=== PATIENT | male | born 1985 | race Caucasian/White ===

== ENCOUNTER 2017-01-01 15:49 | Emergency (ER) | payer OTHER ==
[~2017-01-01] VITALS: Ht 172.7 cm; Wt 172.0 kg
[2017-01-01 15:54] VITALS: BP 110/71; PULSE 108; RESP 16; O2SAT 98
[2017-01-01 17:30] LABS: BASOPHILS % (AUTO) 0.4 % (0-3); EOSINOPHILS % (AUTO) 0 % (0-5); MONOCYTES % (AUTO) 11.4 % (4-12); Mean Corpuscular Hemoglobin 29.9 pg (27.0-35.0); Mean Corpuscular Volume 83.4 fL (81-100); Platelet Count 202 bil/L (150-400)
[2017-01-01] MEDS ORDERED: Ondansetron 8 mg ODT Tablet PO ONE (17:55)
[2017-01-01] MEDS ORDERED: Ondansetron 2 mg/mL 2 mL Inj IVPUSH PRN (17:55)
[2017-01-01 17:56] VITALS: BP 133/84; PULSE 91; O2SAT 97
[2017-01-01 17:59] LABS: Magnesium 1.8 mg/dL (1.6-2.6)
--- NOTE | 2017-01-01 18:04 | ED.REPORT ---
HPI-Abd Pain M Under 40 Date of Service Jan 01, 2017 ED Provider: Milan Woody MD Pt is an otherwise healthy 32 year old male who presents to the ED complaining of concerns of dehydration onset 10:00 yesterday. He c/o associated vomiting, nausea, abdominal pain, lightheadedness, dizziness, fever (Tmax - 101.7 F) and diarrhea. The pt reports that his abdominal pain may be due to hunger. He denies hematochezia and dysuria. The pt denies recent antibiotic use, drinking, and overseas travel. His las episode of diarrhea was 30 minutes prior. Nursing Notes Stated Complaint: NAUSEATED/VOMITING FOR 2 DAYS Chief Complaint: Male Abdominal Pain Nursing Notes Reviewed: Yes Allergies: Coded Allergies: No Known Allergies (Unverified , 01/01/17) Scheduled Ondansetron ODT (Ondansetron ODT) 4 Mg Tab.rapdis 4 MG PO QID General Time Seen by MD: 18:03 Chief Complaint Other (Dehydration) Hx Obtained From: Patient Arrived By: Walk-in Sudden in Onset?: No Onset Occurred: Yesterday Symptom Duration: Since onset Location: : Epigastric Severity: Current: Moderate Severity: Maximum: Moderate Recent Healthcare: No recent doctor visit, No recent hospitalization Similar Sx Previous: No Past Medical History Past Medical History Notes: [employer] through which he has a PCP Past Medical History Denies - healthy Denies: Congestive heart failure, Diabetes mellitus, Hypertension Past Surgical History Denies Smoking History Unknown if Ever Smoker Social History Alcohol Use: Denies alcohol use Drug Use: Denies drug use Ambulatory Status Independent Review of Systems Constitutional: Reports: Fever GI: Reports: Abdominal pain, Diarrhea, Nausea, Vomiting, Denies: Hematochezia Male: Denies Dysuria Complete sys rev & neg: except as marked. Neurologic: Reports: Dizziness, Lightheaded Physical Exam Initial Vital Signs Vital Signs (First) Date Time Temp Pulse Resp B/P Pulse Ox O2 Delivery O2 Flow Rate FiO2 01/01/17 15:54 37.1 108 16 110/71 98 01/01/17 17:56 Room Air Initial VS: Reviewed Head / Eyes: Atraumatic, Normocephalic Neck: Supple, Full range of motion Extremities: Vascular intact, Neuro intact Skin: Warm, Dry, No cyanosis Neurologic: Alert, Oriented, Nonfocal Psychiatric: Mood/affect normal, Behavior normal General/Constitutional: Awake, Alert, Cooperative Respiratory / Chest: Atraumatic, Breath sounds NL, Breath sounds = bilat Cardiovascular: Heart rate NL, Regular rhythm, Heart sounds NL, No gallop, No murmurs Abdomen: Atraumatic, Soft, BS normoactive Tenderness/Guarding/Rebound: Positive: Tender epigastric (mild) Back: Atraumatic, Full range of motion Interpretation & Diagnostics Lab Results Interpretation Result Diagram: 01/01/17 1655 01/01/17 1655 Test 01/01/17 16:55 01/01/17 18:00 White Blood Count 5.1th/mm3 (3.8-10.1) Red Blood Count 5.95mil/mm3 (4.40-5.80) Hemoglobin 17.8g/dL (13.8-17.2) Hematocrit 49.6% (41.0-50.0) Mean Corpuscular Volume 83.4fL (81-100) Mean Corpuscular Hemoglobin 29.9pg (27.0-35.0) Mean Corpuscular Hemoglobin Concent 35.9% (32.0-37.0) Red Cell Distribution Width 12.6% (12.3-15.4) Platelet Count 202bil/L (150-400) Neutrophils (%) (Auto) 72.0% (40-74) Lymphocytes (%) (Auto) 16.0% (14-46) Monocytes (%) (Auto) 11.4% (4-12) Eosinophils (%) (Auto) 0% (0-5) Basophils (%) (Auto) 0.4% (0-3) Sodium Level 134mEq/L (134-144) Potassium Level 3.9mEq/L (3.5-5.2) Chloride Level 92mEq/L (97-108) Carbon Dioxide Level 23mmol/L (18-29) Blood Urea Nitrogen 13mg/dL (6-20) Creatinine 1.12mg/dL (0.76-1.27) Estimat Glomerular Filtration Rate 81mL/min (>59) Glucose Level 108mg/dL (60-99) Calcium Level 10.1mg/dL (8.5-10.1) Magnesium Level 1.8mg/dL (1.6-2.6) Total Bilirubin 0.5mg/dL (0.0-1.2) Aspartate Amino Transf (AST/SGOT) 35U/L (0-50) Alanine Aminotransferase (ALT/SGPT) 26U/L (0-44) Alkaline Phosphatase 60U/L (25-150) Total Protein 8.7g/dL (6.4-8.4) Albumin 5.0g/dL (3.4-5.0) Lipase 30U/L (13-60) Hold Leigh Top Tube Received (Received) Hold Urine Received (Received) Re-Eval/Medical Decision Med Decision/Clinical Course Oral zofran resolved vomiting. NS x2L pt feeling better and tachycardia/dizziness resolved. Source of Hx: Old records Re-Evaluation/Progress : Time of Eval: 19:56 Re-Evaluation/Progress Note: Pt rechecked. Informed pt of plan for discharge. Pt understands and agrees with plan for discharge. F/U instructions and RTER warnings given. All questions addressed. Counseled Regarding: Diagnosis, Lab results, Need for follow-up, When/why to return to ED Patient Discharge & Departure Primary Impression: Gastroenteritis and colitis, viral Disposition: Home Discharge Condition All VS Reviewed: Yes Condition: Stable Patient Instructions: Gastroenteritis (ED) Additional Instructions: Emergency Department evaluation included interview, examination and labs. Treatment with ondansetron for nausea and IV fluids was effective. This appears to be a viral intestinal infection which should resolve within one week. Medic treatment includes ondansetron as needed for nausea and vomiting, can use every 6 hours as needed. Imodium as needed for diarrhea, follow instructions on packaging. Clear Liquid diet including some electrolyte replacements initially and then advance diet as tolerated. Return emergency Department for bloody stool increasing abdominal pain, follow-up with primary care if symptoms have not resolved within 4-5 days. Referrals: OTHER,PHYSICIAN Scribe Attestation Portions of this note were transcribed by Lucero Pike. I, Dr. Woody personally performed the history, physical exam and medical decision-making; I reviewed and confirmed the accuracy of the information in the transcribed note. Signed by : Randolph Jacob, 01/01/17 and 20:50. copies to: BRIANNA,PHYSICIAN Milan Woody MD Jan 01, 2017 18:04 Lucero Faye Jan 01, 2017 18:11
[2017-01-01] MEDS ORDERED: 0.9% Sodium Chloride 1,000 ML IV ONE ×2 (18:15→19:15)
[2017-01-01] MEDS ORDERED: _Ondansetron ODT 4 mg Tablet PO PRN (19:15)
[2017-01-01] MEDS ORDERED: ONDA4TAB12 PO (20:02)
[2017-01-01 20:28] VITALS: BP 123/61; PULSE 82; RESP 18; O2SAT 99
== END 2017-01-01 20:30 | disposition home or self-care (01) ==
LOC: SED 15:49
DX: A08.4 Viral intestinal infection, unspecified (principal)
CPT/HCPCS: 36415; 80053; 83690; 83735; 85025; 96360; 99284; J7030